=== PATIENT | male | born 1985 | race Caucasian/White ===

== ENCOUNTER → 2018-04-07 16:23 | Outpatient (CLI) | payer SELFPAY ==
[2018-04-07 17:57] LABS: Urine N gonorrhoeae NOT DETECTED
[2018-04-10 08:41] LABS: Urine Chlamydia DETECTED
== END ==
PROVIDERS: Visit Provider Physician Assistant
DX: Z20.2 Contact with and (suspected) exposure to infections with a predominantly sexual mode of transmission (principal)
CPT/HCPCS: 87491; 87591

== ENCOUNTER → 2018-04-24 07:32 | Outpatient (CLI) | payer SELFPAY ==
[2018-04-24 09:03] LABS: Hepatitis B Surface Antigen NEGATIVE s/c (NEGATIVE)
[2018-04-25 18:29] LABS: HIV Ag/Ab, 4th Gen Nonreactive (Nonreactive)
[2018-04-26 14:34] LABS: RPR Screen Nonreactive (Nonreactive)
[2018-04-28 15:11] LABS: Hepatitis B Core Antibody Nonreactive (Nonreactive)
== END ==
PROVIDERS: Visit Provider Physician Assistant
DX: Z20.2 Contact with and (suspected) exposure to infections with a predominantly sexual mode of transmission (principal)
CPT/HCPCS: 36415; 86592; 86703; 86704; 87340